=== PATIENT | female | born 1995 | race American Indian/Alaskan Native ===

== ENCOUNTER 2018-05-23 01:34 | Emergency (ER) | payer SELFPAY ==
[2018-05-23 01:46] VITALS: BP 132/84
[2018-05-23] MEDS ORDERED: REGLAN ONE (01:54)
[2018-05-23] MEDS ORDERED: DELTASONE PO ONE (01:54)
[2018-05-23] MEDS ORDERED: BENADRYL PO ONE ×2 (01:54)
[2018-05-23] MEDS ORDERED: DELTASONE ONE (01:54)
[2018-05-23] MEDS ORDERED: REGLAN PO ONE (01:54)
== END 2018-05-23 03:03 | disposition left against medical advice (07) ==
LOC: ED 01:34
DX: T78.40XA Allergy, unspecified, initial encounter (principal); Z53.21 Procedure and treatment not carried out due to patient leaving prior to being seen by health care provider
CPT/HCPCS: J7512

== ENCOUNTER 2022-04-05 21:41 | Observation (INO) | payer MEDICAID ==
--- NOTE | 2022-04-06 01:18 | Emergency Department Report ---
ED General Adult HPI - General Chief complaint: Anxiety Stated complaint: BREATHING ISSUES Time Seen by Provider: 04/06/22 01:06 Source: patient Mode of arrival: Ambulatory Limitations: No Limitations - History of Present Illness Initial comments: Patient 26-year-old female history of anxiety who presents for shortness of breath with chest pain x2 days. Patient states symptoms are exacerbated by stress relieved by nothing tried. He states shortness of breath with nonproductive cough. There is been no suspicious travel no history of PE pain is described at 4/10 right lateral chest wall. Last menstrual cycle 1 month ago. Patient denies SI HI patient denies substance or smoking. Patient not being treated by psychiatrist. Denies smoking denies oral contraceptives - Related Data Allergies Allergy/AdvReac Type Severity Reaction Status Date / Time No Known Allergies Allergy Verified 05/23/18 01:55 ED Review of Systems ROS: Stated complaint: BREATHING ISSUES Other details as noted in HPI Constitutional: denies: chills, fever Eyes: denies: eye pain, eye discharge, vision change ENT: denies: ear pain, throat pain, congestion Respiratory: shortness of breath Cardiovascular: chest pain. denies: palpitations Endocrine: no symptoms reported (Right lateral chest wall) Gastrointestinal: denies: abdominal pain, nausea, vomiting, diarrhea Genitourinary: denies: urgency, dysuria, discharge Musculoskeletal: denies: back pain, joint swelling, arthralgia Skin: denies: rash, lesions Neurological: denies: headache, weakness, numbness, paresthesias, confusion, vertigo Psychiatric: anxiety Hematological/Lymphatic: denies: easy bleeding, easy bruising ED Past Medical Hx - Past Medical History Hx Psychiatric Treatment: No Additional medical history: Anxiety - Social History Smoking Status: Never Smoker Substance Use Type: Alcohol ED Physical Exam - General Limitations: No Limitations General appearance: alert, in no apparent distress, anxious - Head Head exam: Present: normocephalic, normal inspection - Eye Eye exam: Present: PERRL, EOMI Pupils: Present: normal accommodation - ENT ENT exam: Present: normal orophraynx, mucous membranes moist - Neck Neck exam: Present: normal inspection, full ROM. Absent: tenderness, meningismus, lymphadenopathy, thyromegaly - Respiratory Respiratory exam: Present: normal lung sounds bilaterally, chest wall tenderness (Right anterior lateral chest wall swelling no crepitus no step-off lung sounds are clear throughout pain is not producible with deep palpation.). Absent: respiratory distress, wheezes, stridor - Cardiovascular Cardiovascular Exam: Present: normal rhythm, tachycardia, normal heart sounds. Absent: systolic murmur, diastolic murmur, rubs, gallop - GI/Abdominal GI/Abdominal exam: Present: soft, normal bowel sounds. Absent: distended, tenderness, guarding, rebound, rigid, bruit - Rectal Rectal exam: Present: deferred - External exam: Present: other (Deferred) - Extremities Exam Extremities exam: Present: normal inspection, full ROM, normal capillary refill. Absent: tenderness, pedal edema - Back Exam Back exam: Present: normal inspection, full ROM. Absent: CVA tenderness (R), CVA tenderness (L) - Neurological Exam Neurological exam: Present: alert, oriented X3, CN II-XII intact, normal gait - Expanded Neurological Exam Expanded Patient oriented to: Present: person, place, time Speech: Present: fluid speech Cranial nerves: EOM's Intact: Normal Motor strength exam: RUE: 5, LUE: 5, RLE: 5, LLE: 5 Best Eye Response ([place]): (4) open spontaneously Best Motor Response ([place]): (6) obeys commands Best Verbal Response ([place]): (5) oriented [place] Total: 15 - Psychiatric Psychiatric exam: Present: normal affect, normal mood - Skin Skin exam: Present: warm, dry, intact, normal color ED Course Vital Signs 04/05/22 04/06/22 21:47 02:35 Temperature 98.8 F Pulse Rate 134 H 90 Respiratory 18 12 Rate Blood Pressure 162/80 Blood Pressure 119/84 [Left] O2 Sat by Pulse 100 100 Oximetry ED Medical Decision Making - Lab Data Result diagrams: 04/06/22 01:26 04/06/22 01:26 Labs 04/06/22 04/06/22 04/06/22 01:26 01:26 01:26 WBC 13.2 H RBC 4.26 Hgb 12.6 Hct 38.2 MCV 90 MCH 30 MCHC 33 RDW 11.2 L Plt Count 263 Lymph % (Auto) 23.8 [place] % (Auto) 6.8 Eos % (Auto) 0.5 Baso % (Auto) 0.5 Lymph # (Auto) 3.1 [place] # (Auto) 0.9 H Eos # (Auto) 0.1 Baso # (Auto) 0.1 Seg Neutrophils % 68.4 Seg Neutrophils # 9.0 H PT 17.6 H INR 1.29 H APTT 27.7 D-Dimer 1012.98 H Sodium 139 Potassium 3.4 L Chloride 104.1 Carbon Dioxide 24 Anion Gap 14 BUN 16 Creatinine 0.6 Estimated GFR > 60 BUN/Creatinine Ratio 27 Glucose 114 H Calcium 9.4 Total Bilirubin 0.30 AST 16 ALT 9 Alkaline Phosphatase 73 Total Protein 6.7 Albumin 4.1 Albumin/Globulin Ratio 1.6 HCG, Quant U Epithel Cells (Auto) Urine Opiates Screen Urine Methadone Screen Ur Barbiturates Screen Ur Phencyclidine Scrn Ur Amphetamines Screen U Benzodiazepines Scrn Urine Cocaine Screen U Marijuana (THC) Screen Drugs of Abuse Note 04/06/22 04/06/22 04/06/22 01:26 Unknown Unknown WBC RBC Hgb Hct MCV MCH MCHC RDW Plt Count Lymph % (Auto) [place] % (Auto) Eos % (Auto) Baso % (Auto) Lymph # (Auto) [place] # (Auto) Eos # (Auto) Baso # (Auto) Seg Neutrophils % Seg Neutrophils # PT INR APTT D-Dimer Sodium Potassium Chloride Carbon Dioxide Anion Gap BUN Creatinine Estimated GFR BUN/Creatinine Ratio Glucose Calcium Total Bilirubin AST ALT Alkaline Phosphatase Total Protein Albumin Albumin/Globulin Ratio HCG, Quant < 2 U Epithel Cells (Auto) 13.0 Urine Opiates Screen Presumptive negative Urine Methadone Screen Presumptive negative Ur Barbiturates Screen Presumptive negative Ur Phencyclidine Scrn Presumptive negative Ur Amphetamines Screen Presumptive negative U Benzodiazepines Scrn Presumptive negative Urine Cocaine Screen Presumptive negative U Marijuana (THC) Screen Presumptive negative Drugs of Abuse Note Disclamer - EKG Data EKG shows normal: sinus rhythm Rate: tachycardia - EKG Data When compared to previous EKG there are: previous EKG unavailable Interpretation: other (Sinus tachycardia heart rate 104, prolonged VT interval, no ST elevated OR interpreted by ED attending.) - Radiology Data Radiology results: report reviewed, image reviewed CHEST 2 VIEWS INDICATION / CLINICAL INFORMATION: sob. COMPARISON: None available. FINDINGS: SUPPORT DEVICES: None. HEART / MEDIASTINUM: Heart size and mediastinal contour appear within normal limits. LUNGS / PLEURA: No significant pulmonary or pleural abnormality. No pneumothorax. BONES: No significant osseous abnormality. ADDITIONAL FINDINGS: No significant additional findings. IMPRESSION: 1. No active cardiopulmonary disease. Signer Name: Davey Gresham II, MD Signed: 04/06/2022 2:32 AM Workstation Name: [id number] Transcribed By: RUDI Dictated By: DAVEY GRESHAM II, MD Electronically Authenticated By: DAVEY GRESHAM II, MD Signed Date/Time: 04/06/22231 DD/ 1 TD/TT: CTA CHEST WITH CONTRAST INDICATION / CLINICAL INFORMATION: r/o PE. TECHNIQUE: Axial CT images were obtained through the chest after injection of IV contrast. 3 plane MIP and/or 3D reconstructions were produced. All CT scans at this location are performed using CT dose reduction for ALARA by means of automated exposure control. COMPARISON: None available. FINDINGS: VASCULAR FINDINGS: PULMONARY ARTERY: Nonocclusive pulmonary artery embolus is present within the right lower lobe lobar pulmonary artery with extension into multiple segmental divisions. Additional nonocclusive embolus present within the right middle lobe segmental branches.. THORACIC AORTA: No significant abnormality. CORONARY ARTERY CALCIFICATION: Absent -- None. NONVASCULAR FINDINGS: LOWER NECK: Soft tissues and musculature of the lower neck demonstrate no significant abnormality. The thyroid demonstrates no significant abnormality. HEART: No significant abnormality. MEDIASTINUM / DEREK: No significant abnormality. ESOPHAGUS: No significant abnormality. LYMPH NODES: No adenopathy within the axilla, mediastinum, or derek. LUNGS: No acute air space or interstitial disease. PLEURA: No pleural effusion. No pneumothorax. THORACIC SOFT TISSUES: No significant abnormality of the chest wall or upper thoracic musculature. BONES: No significant skeletal abnormalities. ADDITIONAL CHEST FINDINGS: None. UPPER ABDOMEN: No significant abnormality. IMPRESSION: 1. Nonocclusive pulmonary artery embolus right lower lobe lobar segment with extension into multiple segmental branches. Additional nonocclusive thrombus within the right middle lobe segmental branches. PULMONARY EMBOLUS: Positive. Most proximal level of embolus is Right Lobar Pulmonary Artery. 2. No additional acute findings. CRITICAL RESULT Time of Discovery (GASATERIA ATTENDANT/CDT): 0215 hours Time of Communication (GASATERIA ATTENDANT/CDT): 0216 hours Licensed Practitioner Receiving Report: Dr. Gonzales Read-Back Performed: Yes. Signer Name: Davey Gresham II, MD Signed: 04/06/2022 3:19 AM Workstation Name: [id number] Transcribed By: RUDI Dictated By: DAVEY GRESHAM II, MD Electronically Authenticated By: DAVEY GRESHAM II, MD Signed Date/Time: 04/06/22318 DD/ 7 TD/TT: - Medical Decision Making PERC PE: score 2, Wells PE: 4.5, CTA right lower lobe PE, chest x-ray normal, labs noted as above, hCG is negative, discussed case with ED attending recommendation admit to hospitalist diagnosis PE heparinized. Called hospitalist for patient handoff for admission diagnosis right lower lobe PE discussed treatment plan with patient including inpatient admission for PE right lower lobe. Patient advises agreement and understanding of treatment plan. Critical care attestation.: If time is entered above; I have spent that time in minutes in the direct care of this critically ill patient, excluding procedure time. ED Disposition Clinical Impression: Pulmonary embolism Qualifiers: Pulmonary embolism type: unspecified Chronicity: acute Acute cor pulmonale presence: without acute cor pulmonale Qualified Code(s): I26.99 - Other pulmonary embolism without acute cor pulmonale Disposition: ADMITTED INPATIENT Is pt being admited?: Yes Does the pt Need Aspirin: No Condition: Stable Time of Disposition: 04:10
[2022-04-06 01:54] LABS: Basophils # (Auto) 0.1 K/mm3 (0.0-0.1); Basophils % (Auto) 0.5 % (0.0-1.8); Eosinophils # (Auto) 0.1 K/mm3 (0.0-0.4); Eosinophils % (Auto) 0.5 % (0.0-4.3); Hematocrit 38.2 % (30.3-42.9); Hemoglobin 12.6 gm/dl (10.1-14.3); Lymphocytes # (Auto) 3.1 K/mm3 (1.2-5.4); Lymphocytes % (Auto) 23.8 % (13.4-35.0); Mean Corpuscular HGB Conc 33 % (30-34); Mean Corpuscular Volume 90 fl (79-97); Monocytes # (Auto) 0.9 K/mm3 (0.0-0.8); Monocytes % (Auto) 6.8 % (0.0-7.3); Platelet Count 263 K/mm3 (140-440); Red Blood Count 4.26 M/mm3 (3.65-5.03); Red Cell Distribution Width 11.2 % (13.2-15.2)
[2022-04-06 01:56] LABS: Mucus,Urine FEW /HPF
[2022-04-06 02:00] LABS: Amphetamine Screen,Urine PRESUMPTIVE NEGATIVE; Benzodiazepines Screen,Urine PRESUMPTIVE NEGATIVE; Cannabinoid Screen,Urine PRESUMPTIVE NEGATIVE; Cocaine Screen,Urine PRESUMPTIVE NEGATIVE; Methadone Screen,Urine PRESUMPTIVE NEGATIVE; Opiate Screen,Urine PRESUMPTIVE NEGATIVE
[2022-04-06 02:04] LABS: Alanine Aminotransferase 9 units/L (7-56); Albumin 4.1 g/dL (3.9-5); Blood Urea Nitrogen 16 mg/dL (7-17); Calcium 9.4 mg/dL (8.4-10.2); Hemolysis Index 18
[2022-04-06 02:08] LABS: INR 1.29 (0.87-1.13)
[2022-04-06 02:09] LABS: Partial Thromboplastin Time 27.7 Sec. (24.2-36.6)
[2022-04-06 02:13] LABS: BUN/Creatinine Ratio 27
[2022-04-06] MEDS ORDERED: SODIUM CHLORIDE 0.9% 1000 ML 1,000 ML IV ONE (02:22)
[2022-04-06 02:34] LABS: Color,Urine Straw (Yellow)
[2022-04-06 02:35] LABS: RBC,Urine < 1.0 /HPF (0.0-6.0)
--- NOTE | 2022-04-06 02:37 | XRay Report ---
CHEST 2 VIEWS INDICATION / CLINICAL INFORMATION: sob. COMPARISON: None available. FINDINGS: SUPPORT DEVICES: None. HEART / MEDIASTINUM: Heart size and mediastinal contour appear within normal limits. LUNGS / PLEURA: No significant pulmonary or pleural abnormality. No pneumothorax. BONES: No significant osseous abnormality. ADDITIONAL FINDINGS: No significant additional findings. IMPRESSION: 1. No active cardiopulmonary disease. Signer Name: Juan Pablo Gresham II, MD Signed: 04/06/2022 2:32 AM Workstation Name: [id number]
[2022-04-06] MEDS ORDERED: HEPARIN 10,000 UNITS/10 ML VIAL IV PRN (03:20)
[2022-04-06] MEDS ORDERED: HEPARIN 10,000 UNITS/10 ML VIAL IV ONE (03:20)
--- NOTE | 2022-04-06 03:23 | Cat Scan Report ---
CTA CHEST WITH CONTRAST INDICATION / CLINICAL INFORMATION: r/o PE. TECHNIQUE: Axial CT images were obtained through the chest after injection of IV contrast. 3 plane [place] P and/or 3D reconstructions were produced. All CT scans at this location are performed using CT dose reduction for ALARA by means of automated exposure control. COMPARISON: None available. FINDINGS: VASCULAR FINDINGS: PULMONARY ARTERY: Nonocclusive pulmonary artery embolus is present within the right lower lobe lobar pulmonary artery with extension into multiple segmental divisions. Additional nonocclusive embolus pr esent within the right middle lobe segmental branches.. THORACIC AORTA: No significant abnormality. CORONARY ARTERY CALCIFICATION: Absent -- None. NONVASCULAR FINDINGS: LOWER NECK: Soft tissues and musculature of the lower neck demonstrate no significant abnormality. Th e thyroid demonstrates no significant abnormality. HEART: No significant abnormality. MEDIASTINUM / CARLYLE: No significant abnormality. ESOPHAGUS: No significant abnormality. LYMPH NODES: No adenopathy within the axilla, mediastinum, or carlyle. LUNGS: No acute air space or interstitial disease. PLEURA: No pleural effusion. No pneumothorax. THORACIC SOFT TISSUES: No significant abnormality of the chest wall or upper thoracic musculature. BONES: No significant skeletal abnormalities. ADDITIONAL CHEST FINDINGS: None. UPPER ABDOMEN: No significant abnormality. IMPRESSION: 1. Nonocclusive pulmonary artery embolus right lower lobe lobar segment with extension into multiple segmental branches. Additional nonocclusive thrombus within the right middle lobe segmental branches. PULMONARY EMBOLUS: Positive. Most proximal level of embolus is Right Lobar Pulmonary Artery. 2. No additional acute findings. CRITICAL RESULT Time of Discovery (INVESTIGATOR VICE/CDT): 0215 hours Time of Communication (INVESTIGATOR VICE/CDT): 0216 hours Licensed Practitioner Receiving Report: Dr. Gonzales Read-Back Performed: Yes. Signer Name: Juan Pablo Gresham II, MD Signed: 04/06/2022 3:19 AM Workstation Name: [email or web address]
[2022-04-06] MEDS ORDERED: HEPARIN/ 0.45% NACL DRIP 25,000 UNIT/500 ML BAG IV SCH (04:00)
[2022-04-06] MEDS ORDERED: ACETAMINOPHEN 325 MG TAB PO PRN (04:24)
[2022-04-06] MEDS ORDERED: MORPHINE 2 MG/1 ML INJ IV PRN (04:24)
[2022-04-06] MEDS ORDERED: MORPHINE 4 MG/1 ML INJ IV PRN (04:24)
[2022-04-06] MEDS ORDERED: ONDANSETRON 4 MG/2 ML INJ IV PRN (04:24)
[2022-04-06] MEDS ORDERED: ALBUTEROL 2.5 MG/3 ML NEBU IH PRN (04:24)
--- NOTE | 2022-04-06 04:30 | History and Physical Report ---
History of Present Illness Date of examination: 04/06/22 Date of admission: 04/06/22 Chief complaint: Shortness of breath Chest pain History of present illness: 26-year-old female history of anxiety was brought to the emergency room because of shortness of breath with chest pain x2 days. Patient states symptoms are exacerbated by stress relieved by nothing tried. Patient complaining of shortness of breath with nonproductive cough. pain is described at 4/10 right lateral chest wall. Last menstrual cycle 1 month ago. Patient Denies smoking denies oral contraceptives. Patient denies any long travel history In the emergency room CTA showed 1. Nonocclusive pulmonary artery embolus right lower lobe lobar segment with extension into multiple segmental branches. Additional nonocclusive thrombus within the right middle lobe segmental branches. PULMONARY EMBOLUS: Positive. Most proximal level of embolus is Right Lobar Pulmonary Artery. Past History Past Medical History: other (Anxiety) Past Surgical History: No surgical history Social history: alcohol abuse Family history: no significant family history Medications and Allergies Allergies Allergy/AdvReac Type Severity Reaction Status Date / Time No Known Allergies Allergy Verified 05/23/18 01:55 Active Meds: Active Medications Acetaminophen (Acetaminophen 325 Mg Tab) 650 mg PO Q4H PRN PRN Reason: Pain MILD(1-3)/Fever >100.5/GREENE Heparin Sodium (Porcine) (Heparin 10,000 Units/10 Ml Vial) 2,700 unit 40 unit/kg (2700 unit) IV Q6H PRN PRN Reason: Anti-Xa Assay < 0.1 units/ml Heparin Sodium/Sodium Chloride (Heparin/ 0.45% Nacl-25,000 Unit/500 Ml) 25,000 unit in 500 mls @ 20 mls/hr IV TITR BRICE; Protocol Review of Systems All systems: negative Cardiovascular: chest pain, shortness of breath, dyspnea on exertion Respiratory: shortness of breath, dyspnea on exertion Exam - Constitutional Vitals: Temp Pulse Resp BP Pulse Ox 98.8 F 80 12 111/79 100 04/05/22 21:47 04/06/22 04:11 04/06/22 04:11 04/06/22 04:11 04/06/22 04:11 General appearance: Present: no acute distress, well-nourished - EENT Eyes: Present: PERRL ENT: hearing intact, clear oral mucosa - Neck Neck: Present: supple, normal ROM - Respiratory Respiratory effort: normal Respiratory: bilateral: CTA - Cardiovascular Heart Sounds: Present: S1 & S2. Absent: rub, click - Extremities Extremities: pulses symmetrical, No edema Peripheral Pulses: within normal limits - Abdominal General gastrointestinal: Present: soft, non-tender, non-distended, normal bowel sounds Female genitourinary: Present: normal - Integumentary Integumentary: Present: clear, warm, dry - Musculoskeletal Musculoskeletal: gait normal, strength equal bilaterally - Psychiatric Psychiatric: appropriate mood/affect, intact judgment & insight - Neurologic Neurologic: CNII-XII intact, moves all extremities Results - Labs CBC & Chem 7: 04/06/22 01:04/06/22: Labs: Laboratory Last Values WBC 13.2 K/mm3 (4.5-11.0) H 04/06/22: RBC 4.26 M/mm3 (3.65-5.03) 04/06/22: Hgb 12.6 gm/dl (10.1-14.3) 04/06/22: Hct 38.2 % (30.3-42.9) 04/06/22: MCV 90 fl (79-97) 04/06/22: MCH 30 pg (28-32) 04/06/22: MCHC 33 % (30-34) 04/06/22: RDW 11.2 % (13.2-15.2) L 04/06/22: Plt Count 263 K/mm3 (140-440) 04/06/22: Lymph % (Auto) 23.8 % (13.4-35.0) 04/06/22: [place] % (Auto) 6.8 % (0.0-7.3) 04/06/22: Eos % (Auto) 0.5 % (0.0-4.3) 04/06/22: Baso % (Auto) 0.5 % (0.0-1.8) 04/06/22: Lymph # (Auto) 3.1 K/mm3 (1.2-5.4) 04/06/22: [place] # (Auto) 0.9 K/mm3 (0.0-0.8) H 04/06/22 01:26 Eos # (Auto) 0.1 K/mm3 (0.0-0.4) 04/06/22 01:26 Baso # (Auto) 0.1 K/mm3 (0.0-0.1) 04/06/22 01:26 Seg Neutrophils % 68.4 % (40.0-70.0) 04/06/22 01: Seg Neutrophils # 9.0 K/mm3 (1.8-7.7) H 04/06/22 01:26 PT 17.6 Sec. (12.2-14.9) H 04/06/22 01:26 INR 1.29 (0.87-1.13) H 04/06/22 01:26 APTT 27.7 Sec. (24.2-36.6) 04/06/22 01:26 D-Dimer 1012.98 ng/mlDDU (0-234) H 04/06/22 01:26 Sodium 139 mmol/L (137-145) 04/06/22 01:26 Potassium 3.4 mmol/L (3.6-5.0) L 04/06/22 01:26 Chloride 104.1 mmol/L (98-107) 04/06/22 01:26 Carbon Dioxide 24 mmol/L (22-30) 04/06/22 01:26 Anion Gap 14 mmol/L 04/06/22 01:26 BUN 16 mg/dL (7-17) 04/06/22 01:26 Creatinine 0.6 mg/dL (0.6-1.2) 04/06/22 01:26 Estimated GFR > 60 ml/min 04/06/22 01:26 BUN/Creatinine Ratio 27 % 04/06/22 01:26 Glucose 114 mg/dL (65-100) H 04/06/22 01:26 Calcium 9.4 mg/dL (8.4-10.2) 04/06/22 01:26 Total Bilirubin 0.30 mg/dL (0.1-1.2) 04/06/22 01:26 AST 16 units/L (5-40) 04/06/22 01:26 ALT 9 units/L (7-56) 04/06/22 01:26 Alkaline Phosphatase 73 units/L (35-129) 04/06/22 01:26 Total Protein 6.7 g/dL (6.3-8.2) 04/06/22 01:26 Albumin 4.1 g/dL (3.9-5) 04/06/22: Albumin/Globulin Ratio 1.6 % 04/06/22 01: HCG, Quant < 2 mIU/mL (0-4) 04/06/22 01:26 Urine Color Straw (Yellow) 04/06/22 Unknown Urine Turbidity Clear (Clear) 04/06/22 Unknown Specific [place] (Man) 1.010 (1.003-1.030) 04/06/22 Unknown Ur Protein (Man) <30 mg dl mg/dL (Negative) 04/06/22 Unknown Ur Ketones (Man) 5mg/dl (Negative) 04/06/22 Unknown Ur Nitrite (Man) Negative (Negative) 04/06/22 Unknown Ur Reducing Substances Not Reportable 04/06/22 Unknown Urine Bilirubin (Man) Negative (Negative) 04/06/22 Unknown Leukocyte Esterase (Man) Negative (Negative) 04/06/22 Unknown Urine WBC (Auto) 3.0 /HPF (0.0-6.0) 04/06/22 Unknown Urine RBC (Auto) < 1.0 /HPF (0.0-6.0) 04/06/22 Unknown U Epithel Cells (Auto) 13.0 /HPF (0-13.0) 04/06/22 Unknown Urine RBC (Manual) Negative (Negative) 04/06/22 Unknown Urine Mucus Few /HPF 04/06/22 Unknown Urine Yeast (Budding) Few /HPF 04/06/22 Unknown Urine Opiates Screen Presumptive negative 04/06/22 Unknown Urine Methadone Screen Presumptive negative 04/06/22 Unknown Ur Barbiturates Screen Presumptive negative 04/06/22 Unknown Ur Phencyclidine Scrn Presumptive negative 04/06/22 Unknown Ur Amphetamines Screen Presumptive negative 04/06/22 Unknown U Benzodiazepines Scrn Presumptive negative 04/06/22 Unknown Urine Cocaine Screen Presumptive negative 04/06/22 Unknown U Marijuana (THC) Screen Presumptive negative 04/06/22 Unknown Drugs of Abuse Note Disclamer 04/06/22 Unknown - Imaging and Cardiology CT scan - chest: report reviewed Assessment and Plan VTE prophylaxis?: Chemical Plan of care discussed with patient/family: Yes - Patient Problems (1) Pulmonary embolism Status: Acute Qualifiers: Pulmonary embolism type: unspecified Chronicity: acute Acute cor pulmonale presence: without acute cor pulmonale Qualified Code(s): I26.99 - Other pulmonary embolism without acute cor pulmonale Plan to address problem: Admit the patient to the medical telemetry. Oxygen via nasal cannula seismic interpreter pulmonate. DuoNeb and nebulizer every 4 hours. Albuterol via nebulizer every 4 hours as needed. Heparin drip as per protocol. Continue home medication (2) Dyspnea Status: Acute Plan to address problem: Oxygen by nasal cannula 3 L/min. DuoNeb via nebulizer every 4 hours. Albuterol via nebulizer every 4 hours as needed (3) Anxiety Status: Acute Plan to address problem: Stable. We will continue the home medication. Outpatient follow-up with psych (4) Chest pain Status: Acute Plan to address problem: Most likely secondary to pulmonary embolism. We will do the serial cardiac enzymes. We will consult cardiology if needed (5) DVT prophylaxis Status: Acute Plan to address problem: Heparin drip as per protocol for DVT prophylaxis. Pepcid 20 mg p.o. twice daily for GI prophylaxis. Patient is a full code
[2022-04-06 05:32] LABS: Hematocrit 38.2 % (30.3-42.9)
[2022-04-06 05:43] LABS: INR 1.24 (0.87-1.13)
[2022-04-06 05:44] LABS: Partial Thromboplastin Time 28.4 Sec. (24.2-36.6)
[2022-04-06] MEDS ORDERED: IPRATROPIUM/ALBUTEROL SULFATE 3 ML AMPUL.NEB IH SCH (08:00)
[2022-04-06] MEDS ORDERED: FAMOTIDINE 20 MG TAB PO SCH (10:00)
--- NOTE | 2022-04-06 10:08 | Discharge Summary ---
Providers - Providers Date of Admission: 04/06/22 04:24 Date of discharge: 04/06/22 Attending physician: WINSOME ROSAS MD Primary care physician: MILLY CHAWLA Hospitalization Reason for admission: Pulmonary embolism Condition: Stable Pertinent studies: Reviewed. Procedures: None. Hospital course: Patient is a 26-year-old female with no significant past medical history who presented with increasing shortness of breath and cough of the previous days. Patient denied any recent surgeries, hormonal therapy, extended travel, smoking, recent , or known clotting disorders. Patient does endorse not being vaccinated for COVID-19. In the ED, the patient was evaluated and found to be hemodynamically stable. Patient underwent CT angio and chest that revealed acute pulmonary embolism. Patient was initiated on a heparin drip. The patient is hemodynamically stable and saturating well on room air, and she is being transitioned to Eliquis for further DVT treatment. The patient will be taking Eliquis 10 mg twice daily for the first 7 days. Afterwards, the patient will be taking Eliquis 5 mg twice daily moving forward. The patient is also being swabbed for coronavirus infection. The patient will be notified after discharge about her COVID status. The patient is medically clear for discharge. Disposition: 01 HOME / SELF CARE / HOMELESS Final Discharge Diagnosis (Prints w/discharge instructions): Acute pulmonary em bolism Time spent for discharge: 45 minutes Core Measure Documentation - Palliative Care Palliative Care/ Comfort Measures: Not Applicable - Core Measures Any of the following diagnoses?: DVT/PE - VTE Discharge Requirements Deep Vein Thrombosis/Pulmonary Embolism Present on Admission: Yes Has pt received <5 days of overlap therapy or INR<2.0: No Anticoagulant overlap therapy prescribed at discharge: Yes Exam - Constitutional Vitals: Temp Pulse Resp BP Pulse Ox 98.8 F 87 18 106/54 98 04/05/22 21:47 04/06/22 07:59 04/06/22 07:59 04/06/22 05:31 04/06/22 07:59 General appearance: Present: no acute distress, well-nourished - EENT Eyes: Present: PERRL, EOM intact ENT: hearing intact, clear oral mucosa, dentition normal - Neck Neck: Present: supple, normal ROM - Respiratory Respiratory effort: normal Respiratory: bilateral: CTA - Cardiovascular Rhythm: regular Heart Sounds: Present: S1 & S2 - Extremities Extremities: no ischemia, pulses intact, pulses symmetrical, No edema, normal temperature, normal color, Full ROM Peripheral Pulses: within normal limits - Abdominal General gastrointestinal: Present: soft, non-tender, non-distended, normal bowel sounds Female genitourinary: Present: deferred - Rectal Rectal Exam: deferred - Integumentary Integumentary: Present: clear, warm, dry - Musculoskeletal Musculoskeletal: strength equal bilaterally - Psychiatric Psychiatric: appropriate mood/affect, intact judgment & insight, memory intact, cooperative - Neurologic Neurologic: CNII-XII intact, moves all extremities - Allied Health Allied health notes reviewed: nursing Plan Activity: no restrictions Diet: regular Additional Instructions: Patient is a 26-year-old female with no significant past medical history who presented with increasing shortness of breath and cough of the previous days. Patient denied any recent surgeries, hormonal therapy, extended travel, smoking, recent , or known clotting disorders. Patient does endorse not being vaccinated for COVID-19. In the ED, the patient was evaluated and found to be hemodynamically stable. Patient underwent CT angio and chest that revealed acute pulmonary embolism. Patient was initiated on a heparin drip. The patient is hemodynamically stable and saturating well on room air, and she is being transitioned to Eliquis for further DVT treatment. The patient will be taking Eliquis 10 mg twice daily for the first 7 days. Afterwards, the patient will be taking Eliquis 5 mg twice daily moving forward. The patient is also being swabbed for coronavirus infection. The patient will be notified after discharge about her COVID status. The patient is medically clear for discharge. Care Plan Goals: Patient is medically clear for discharge. Assessment: Patient is a 26-year-old female with no significant past medical history who presented with increasing shortness of breath and cough of the previous days. Patient denied any recent surgeries, hormonal therapy, extended travel, smoking, recent , or known clotting disorders. Patient does endorse not being vaccinated for COVID-19. In the ED, the patient was evaluated and found to be hemodynamically stable. Patient underwent CT angio and chest that revealed acute pulmonary embolism. Patient was initiated on a heparin drip. The patient is hemodynamically stable and saturating well on room air, and she is being transitioned to Eliquis for further DVT treatment. The patient will be taking Eliquis 10 mg twice daily for the first 7 days. Afterwards, the patient will be taking Eliquis 5 mg twice daily moving forward. The patient is also being swabbed for coronavirus infection. The patient will be notified after discharge about her COVID status. The patient is medically clear for discharge. Follow up with: MILLY CHAWLA MD [Primary Care Provider] - 7 Days Prescriptions: Apixaban [Eliquis] 5 mg PO BID #70 tab
--- NOTE | 2022-04-06 10:40 | Electrocardiograph Report ---
[facility] Test Date: 2022-04-06 Test Time: 01:34:57 Pat Name: LAVON ACUNA Department: Room: [facility] Gender: F Assistant Program Director: OSBALDO : 1995 Requested By: ÁNGEL HESS Order Number: [id number] Reading MD: Harish Brown Measurements Intervals [place] Rate: 104 P: 65 VA: 211 QRS: 71 QRSD: 93 T: 23 QT: 356 QTc: 469 Interpretive Statements Sinus tachycardia Prolonged VA interval Probable left atrial enlargement No previous ECG available for comparison Electronically Signed On 04-06-2022 10:40:23 EDT by Harish Brown
[2022-04-06 14:48] VITALS: BP 105/55
== END 2022-04-06 11:45 | disposition still patient (30) ==
LOC: ED 21:41 → 4A 04-06 04:24 → INTOOBSV 04-06 04:24 → 4A 04-06 08:35
PROVIDERS: ADMIT Hospitalist; ATTEND Student in an Organized Health Care Education/Training Program
DX: I26.99 Other pulmonary embolism without acute cor pulmonale (principal); Z20.822 Contact with and (suspected) exposure to COVID-19; R06.00 Dyspnea, unspecified; F41.9 Anxiety disorder, unspecified; R07.89 Other chest pain; Z79.899 Other long term (current) drug therapy; Z98.890 Other specified postprocedural states
CPT/HCPCS: 36415; 71046; 71275; 80053; 80307; 81001; 84702; 85014; 85018; 85025; 85049; 85379; 85610; 85730; 93005; 94644; 96365; 96366; 96376; 99285; G0378; J1644; Q9967; U0003; J3490